=== PATIENT | male | born 1975 | race Two or more races ===

== ENCOUNTER 2023-02-01 06:58 | Emergency (ER) | payer SELFPAY ==
[~2023-02-01] VITALS: Ht 144.8 cm; Wt 68.1 kg
[2023-02-01 07:58] VITALS: BP 155/89
[2023-02-01] MEDS ORDERED: CLIN300C70 PO (08:34)
[2023-02-01] MEDS ORDERED: IBUP-1454 PO (08:34)
== END 2023-02-01 08:37 | disposition home or self-care (01) ==
LOC: ER 06:58
DX: K04.7 Periapical abscess without sinus (principal); Z88.6 Allergy status to analgesic agent

== ENCOUNTER 2024-01-16 06:20 | Inpatient (IN) | payer OTHER ==
[~2024-01-16] VITALS: Ht 147.3 cm; Wt 68.0 kg
[2024-01-16] MEDS ORDERED: BUPIVACAINE HCL 50 ML ONE (06:33)
[2024-01-16] MEDS ORDERED: EPINEPHrine HCL 1 MG/1 ML AMP ONE (06:33)
[2024-01-16] MEDS ORDERED: KETOROLAC TROMETH 30 MG/ML 1ML VIAL ONE (06:45)
[2024-01-16] MEDS ORDERED: ONDANSETRON HCL 4 MG/2 ML VIAL ONE (06:45)
[2024-01-16] MEDS ORDERED: DexAMETHasone SOD PHOS 10MG/1ML VIAL INJ ONE ×2 (06:45→06:48)
[2024-01-16] MEDS ORDERED: SUGAMMADEX 200mg/2ml Vial (100MG/ML) IV ONE (06:45)
[2024-01-16] MEDS ORDERED: LIDOCAINE 2% (LOCAL ANESTH.) PF 5ml SDV ONE (06:45)
[2024-01-16] MEDS ORDERED: PROPOFOL 10 MG/ML 20 ML IV ONE (06:47)
[2024-01-16] MEDS ORDERED: GLYCOPYRROLATE 0.2 MG/ML 1ML VIAL ONE (06:47)
[2024-01-16] MEDS ORDERED: ROCURONIUM 10MG/ML 10ML VIAL IV ONE (06:47)
[2024-01-16] MEDS ORDERED: KETAMINE 50mg/ML 1ml syringe ONE (06:52)
[2024-01-16] MEDS ORDERED: fentaNYL CITRATE 5 ML ONE (06:52)
[2024-01-16] MEDS ORDERED: SODIUM CHLORIDE LOCK 30 ML ONE (06:53)
[2024-01-16] MEDS: ACETAMINOPHEN IV 1000 MG/100ML (10MG/ML) IV ONE (07:00)
[2024-01-16] MEDS: GABAPENTIN 400 MG CAP PO ONE (07:00)
[2024-01-16] MEDS: CELECOXIB 100 MG CAP PO ONE (07:00)
[2024-01-16] MEDS: ceFAZolin 2 GM/D5W50ml 50 ML IV ONE (07:22)
[2024-01-16] MEDS ORDERED: MORPHINE SULFATE INJ 2 MG/ml SYRG IV PRN (09:00)
[2024-01-16] MEDS ORDERED: NITROGLYCERIN 0.4 MG SL TAB SL PRN (09:00)
[2024-01-16 09:11] VITALS: O2SAT 97
[2024-01-16] MEDS ORDERED: FLUMAZENIL 0.1 MG/ML INJ 10ML MDV IV PRN (09:30)
[2024-01-16] MEDS ORDERED: hydrALAZINE HCL 20 MG/ML VL IV PRN (09:30)
[2024-01-16] MEDS ORDERED: NALOXONE HCL 0.4 MG/ML VIAL IV PRN (09:30)
[2024-01-16] MEDS ORDERED: oxyCODONE HCL 5MG TAB PO PRN (09:30)
[2024-01-16] MEDS ORDERED: LABETALOL HCL 5 MG/ML 4ML SYRINGE IV PRN (09:30)
[2024-01-16] MEDS ORDERED: fentaNYL CITRATE 100 MCG/2 ML VL IV PRN (09:30)
[2024-01-16] MEDS ORDERED: ePHEDrine SULFATE 50 MG/ML AMP IV PRN (09:30)
[2024-01-16] MEDS: HYDROmorphone HCL 2 MG/ML VL/or syr IV PRN ×2 (09:41→11:37)
[2024-01-16] MEDS: ONDANSETRON HCL 4 MG/2 ML VIAL IV PRN (09:45)
[2024-01-16 10:14] LABS: INR 1.04 (0.9-1.15); Partial Thromboplastin Time 22.3 SEC (24.5-34.5)
[2024-01-16 10:19] LABS: Basophils # (auto) 0 10 ^3/uL (0-0.2); Basophils % (auto) 0.3 % (0.0-2.0); Eosinophils # (auto) 0.2 10 ^3/uL (0-0.8); Eosinophils % (auto) 1.5 % (0.0-7.0); Hematocrit 40.7 % (36.0-46.0); Hemoglobin 11.8 g/dL (12.2-16.2); Lymphocytes # (auto) 2.2 10 ^3/uL (0.4-5.4); Mean Corpuscular Hemoglobin 27.6 pg (28.0-32.0); Mean Corpuscular Hgb Conc. 28.9 g/dL (32.0-36.0); Mean Corpuscular Volume 95.2 fL (80.0-100.0); Monocytes # (auto) 0.4 10 ^3/uL (0-1.3); Neutrophils # (auto) 11.1 10 ^3/uL (1.6-8.6); Neutrophils % (auto) 79.2 % (37.0-80.0); Nucleated Red Blood Cells % 0.2 %; Red Blood Cells 4.27 10^6/uL (4.0-5.20); Red Cell Distribution Width 27.4 % (11.8-14.3)
[2024-01-16 10:24] LABS: Alanine Aminotransferase 16 U/L (7-40); Albumin 3.9 g/dL (3.2-4.8); Alkaline Phosphatase 49 U/L (46-116); Anion Gap 10 (5-15); Aspartate Aminotransferase 16 U/L (13-40); Bilirubin, Total < 0.2 mg/dL (0.2-1.0); Calcium 8.5 mg/dL (8.5-10.1); Carbon Dioxide 19 mmol/L (20-30); Chloride 107 mmol/L (98-107); Glucose 165 mg/dL (74-106); Sodium 136 mmol/L (136-145); Total Protein 6.2 g/dL (5.7-8.2)
[2024-01-16 10:29] LABS: BUN/Creatinine Ratio 6.4 (10.0-20.0); Blood Urea Nitrogen < 5 mg/dL (9-23)
[2024-01-16 11:52] LABS: Anisocytosis Slight; Platelet Estimate Adequate; Tear Drop Cells FEW
[2024-01-16 11:53] LABS: Stomatocytes Few
[2024-01-16] MEDS: LACTATED RINGER'S 1,000 ML IV SCH (12:02)
[2024-01-16 12:20] VITALS: BP 154/102; PULSE 63; RESP 20; O2SAT 100
[2024-01-16 13:00] VITALS: BP 154/102; PULSE 80; RESP 20; TEMP 98.4; O2SAT 100
[2024-01-16] MEDS ORDERED: CEPH500T PO (13:23)
[2024-01-16] MEDS ORDERED: ZOFR4T PO (13:23)
[2024-01-16] MEDS ORDERED: HYDR-4902 PO (13:23)
[2024-01-16] MEDS ORDERED: IBUP-1456 PO (13:23)
[2024-01-16] MEDS ORDERED: DOCU-94 PO (13:23)
[2024-01-16] MEDS: ceFAZolin 1GM/50ML 50 ML IV SCH (14:12)
[2024-01-16 16:46] VITALS: BP 128/98; PULSE 88; RESP 20; TEMP 98.6; O2SAT 99
[2024-01-16 20:08] LABS: Basophils # (auto) 0 10 ^3/uL (0-0.2); Basophils % (auto) 0.3 % (0.0-2.0); Eosinophils # (auto) 0 10 ^3/uL (0-0.8); Hematocrit 36.6 % (36.0-46.0); Hemoglobin 11.8 g/dL (12.2-16.2); Lymphocytes # (auto) 1.1 10 ^3/uL (0.4-5.4); Mean Corpuscular Hemoglobin 27.3 pg (28.0-32.0); Mean Corpuscular Hgb Conc. 32.3 g/dL (32.0-36.0); Mean Corpuscular Volume 84.3 fL (80.0-100.0); Monocytes # (auto) 0.2 10 ^3/uL (0-1.3); Neutrophils # (auto) 10.9 10 ^3/uL (1.6-8.6); Neutrophils % (auto) 88.7 % (37.0-80.0); Nucleated Red Blood Cells % 0.1 %; Red Blood Cells 4.34 10^6/uL (4.0-5.20); White Blood Cell 12.3 10^3/uL (4.4-10.8)
[2024-01-16 20:09] LABS: Red Cell Distribution Width 25.6 % (11.8-14.3)
[2024-01-16 21:00] VITALS: BP 137/70; PULSE 58; RESP 17; TEMP 97.9; O2SAT 98
[2024-01-17] VITALS (8 sets, daily range): BP systolic 103–154; BP diastolic 43–76; PULSE 53–79; RESP 16–18; TEMP 97.7–98.7; O2SAT 97–100
[2024-01-17 01:05] LABS: Basophils # (auto) 0 10 ^3/uL (0-0.2); Basophils % (auto) 0.4 % (0.0-2.0); Eosinophils # (auto) 0 10 ^3/uL (0-0.8); Eosinophils % (auto) 0.1 % (0.0-7.0); Hematocrit 32.9 % (36.0-46.0); Hemoglobin 10.9 g/dL (12.2-16.2); Mean Corpuscular Hemoglobin 27.9 pg (28.0-32.0); Mean Corpuscular Volume 84.4 fL (80.0-100.0); Monocytes # (auto) 0.5 10 ^3/uL (0-1.3); Monocytes % (auto) 4.4 % (0.0-12.0); Neutrophils % (auto) 86.1 % (37.0-80.0); White Blood Cell 11.6 10^3/uL (4.4-10.8)
[2024-01-17 01:09] LABS: Red Cell Distribution Width 25.9 % (11.8-14.3)
[2024-01-17] MEDS: LACTATED RINGER'S 1,000 ML IV SCH ×2 (05:15→23:30)
[2024-01-17] MEDS ORDERED: HYDROmorphone HCL 2 MG/ML VL/or syr IV PRN (05:15)
[2024-01-17] MEDS ORDERED: BISACODYL 10 MG RECT SUPP PR PRN (05:30)
[2024-01-17 06:02] LABS: Basophils # (auto) 0 10 ^3/uL (0-0.2); Basophils % (auto) 0.1 % (0.0-2.0); Eosinophils # (auto) 0 10 ^3/uL (0-0.8); Hematocrit 32.9 % (36.0-46.0); Hemoglobin 10.8 g/dL (12.2-16.2); Lymphocytes # (auto) 1.3 10 ^3/uL (0.4-5.4); Lymphocytes % (auto) 11.2 % (10.0-50.0); Mean Corpuscular Hemoglobin 27.9 pg (28.0-32.0); Mean Corpuscular Volume 84.8 fL (80.0-100.0); Monocytes # (auto) 0.9 10 ^3/uL (0-1.3); Monocytes % (auto) 7.9 % (0.0-12.0); Neutrophils # (auto) 9.4 10 ^3/uL (1.6-8.6); Neutrophils % (auto) 80.8 % (37.0-80.0); Red Blood Cells 3.88 10^6/uL (4.0-5.20); White Blood Cell 11.6 10^3/uL (4.4-10.8)
[2024-01-17 06:31] LABS: Red Cell Distribution Width 25.9 % (11.8-14.3)
[2024-01-17 08:25] LABS: Anisocytosis Slight; Platelet Estimate Adequate; Stomatocytes Few
[2024-01-17] MEDS: DOCUSATE SOD 100 MG CAP PO SCH (09:44)
[2024-01-17] MEDS: HYDROcodone-ACET 10/325MG TAB PO PRN (13:42)
[2024-01-17] MEDS: ONDANSETRON HCL 4 MG/2 ML VIAL IV PRN (15:39)
[2024-01-18 01:00] VITALS: BP 117/68; PULSE 70; RESP 18; TEMP 98.1; O2SAT 96
[2024-01-18 05:00] VITALS: BP 110/65; PULSE 73; RESP 17; TEMP 98.5; O2SAT 95
[2024-01-18 06:43] VITALS: BP 116/60; PULSE 53; RESP 18; TEMP 98.7; O2SAT 93
[2024-01-18 07:59] VITALS: PULSE 73; RESP 17; O2SAT 95
[2024-01-18 09:00] VITALS: BP_SYST 115; BP_SYST 120; BP_DIAS 46; BP_DIAS 59; PULSE 58; PULSE 72; RESP 20; TEMP 98.4; TEMP 98.6; O2SAT 100; O2SAT 98
== END 2024-01-18 10:45 | disposition home or self-care (01) | DRG 743 ==
LOC: SUR 06:20 → OVERFLOW 09:01 → CENTRAL 11:15
PROVIDERS: ADMIT Obstetrics & Gynecology; ATTEND Obstetrics & Gynecology
PROC: 0UT50ZZ Resection of Right Fallopian Tube, Open Approach (ICD-10-PCS; 2024-01-16)
PROC: 0UT90ZL Resection of Uterus, Supracervical, Open Approach (ICD-10-PCS; 2024-01-16)
PROC: 0UT00ZZ Resection of Right Ovary, Open Approach (ICD-10-PCS; principal; 2024-01-16 07:22)
DX: D25.9 Leiomyoma of uterus, unspecified (principal); F12.90 Cannabis use, unspecified, uncomplicated; Z98.891 History of uterine scar from previous surgery
CPT/HCPCS: 36415; 80053; 85025; 85610; 85730; 86850; 86900; 86901; 97163; G0378; J0131; J0171; J1100; J1885; J2001; J2405; J2704; J3490